=== PATIENT | female | born 1975 | race Caucasian/White ===

== ENCOUNTER 2016-04-25 16:36 | Emergency (ER) | payer MEDICAID ==
[~2016-04-25] VITALS: Ht 167.6 cm; Wt 68.0 kg
[2016-04-25 17:51] LABS: Urine Bilirubin Negative (Negative); Urine Color Yellow (Yellow); Urine Glucose Normal (Normal); Urine Ketone Negative (Negative); Urine Mucus FEW (None Seen); Urine Nitrite Negative (Negative); Urine RBC 4 /hpf (0 - 4); Urine Squamous Epithelial Cell FEW /hpf (<5); Urine Urobilinogen Normal (Negative)
[2016-04-25 17:52] LABS: Urine Blood 1+ /uL (Negative)
[2016-04-25 18:04] LABS: Albumin 4.2 g/dL (3.4-5.0); BUN/Creatinine Ratio 16.3; Bilirubin, Total 0.4 mg/dL (0.2-1.0); Calcium 8.9 mg/dL (8.5-10.1); Magnesium 2.4 mg/dL (1.6-2.6); Total Protein 7.7 g/dL (6.4-8.2)
[2016-04-25 18:13] LABS: Basophils # (auto) 0.1 uL; Basophils % (auto) 0.4 % (0.0-2.0); Eosinophils # (auto) 0.3 uL; Eosinophils % (auto) 1.9 % (0.0-7.0); Hematocrit 40.5 % (36.0-46.0); Hemoglobin 13.4 g/dL (12.2-16.2); Lymphocytes # (auto) 2.5 uL; Lymphocytes % (auto) 17.6 % (10.0-50.0); Mean Corpuscular Hemoglobin 30.7 pg (28.0-32.0); Mean Corpuscular Hgb Conc. 33.1 g/dL (32.0-36.0); Mean Corpuscular Volume 92.8 fL (80.0-100.0); Mean Platelet Volume 8.5 fL (7.4-10.4); Monocytes # (auto) 0.7 uL; Monocytes % (auto) 4.6 % (0.0-12.0); Neutrophils # (auto) 10.9 uL; Neutrophils % (auto) 75.5 % (37.0-80.0); Platelet Count (auto) 412 10^3/uL (140-450); Red Cell Distribution Width 14.4 % (11.6-16.0); White Blood Cell 14.5 10^3/uL (4.4-10.8)
[2016-04-25 18:18] LABS: INR 1.01 (0.9-1.15); Partial Thromboplastin Time 27.3 sec (22.64-33.71); Prothrombin Time 10.4 sec (9.37-12.3)
[2016-04-25] MEDS ORDERED: SULFAMETHOX W/TRIMETH(800/160MG) DS TAB PO ONE (21:30)
[2016-04-25] MEDS ORDERED: IBUPROFEN 600 MG TAB PO ONE (21:45)
[2016-04-26] MEDS: SULFAMETHOX W/TRIMETH(800/160MG) DS TAB PO SCH (10:00)
[2016-04-27] MEDS: SULFAMETHOX W/TRIMETH(800/160MG) DS TAB PO SCH (11:30)
[2016-04-28] MEDS: SULFAMETHOX W/TRIMETH(800/160MG) DS TAB PO SCH ×3 (04:19→19:56)
[2016-04-28 07:20] VITALS: BP 132/74
== END 2016-04-29 10:39 | disposition home or self-care (01) ==
LOC: EDUNIT# 16:36 → ER 16:36
DX: F32.9 Major depressive disorder, single episode, unspecified (principal); R45.851 Suicidal ideations; N39.0 Urinary tract infection, site not specified; F20.9 Schizophrenia, unspecified; F17.210 Nicotine dependence, cigarettes, uncomplicated
CPT/HCPCS: 36415; 71010; 80053; 80320; 81001; 81025; 83735; 85025; 85610; 85730; 93005; 94761; 99285; G0434

== ENCOUNTER 2018-11-14 19:18 | Emergency (ER) | payer MEDICAID, OTHER ==
[~2018-11-14] VITALS: Ht 152.4 cm; Wt 72.6 kg
[2018-11-14 21:06] LABS: Basophils # (auto) 0.1 uL; Basophils % (auto) 0.6 % (0.0-2.0); Eosinophils # (auto) 0.3 uL; Eosinophils % (auto) 2.7 % (0.0-7.0); Hematocrit 41.1 % (36.0-46.0); Hemoglobin 13.9 g/dL (12.2-16.2); Lymphocytes # (auto) 2.5 uL; Lymphocytes % (auto) 23.5 % (10.0-50.0); Mean Corpuscular Hemoglobin 31.7 pg (28.0-32.0); Mean Corpuscular Hgb Conc. 33.8 g/dL (32.0-36.0); Mean Corpuscular Volume 93.7 fL (80.0-100.0); Monocytes # (auto) 0.7 uL; Monocytes % (auto) 6.5 % (0.0-12.0); Neutrophils # (auto) 7.1 uL; Neutrophils % (auto) 66.7 % (37.0-80.0); Platelet Count (auto) 357 10^3/uL (140-450); Red Blood Cells 4.39 10^6/uL (4.0-5.20); Red Cell Distribution Width 13.9 % (11.8-14.3); White Blood Cell 10.6 10^3/uL (4.4-10.8)
[2018-11-14 21:17] LABS: Potassium 4.2 mmol/L (3.5-5.1)
[2018-11-14 21:20] LABS: Albumin 4.3 g/dL (3.4-5.0); BUN/Creatinine Ratio 12.2
[2018-11-14 21:23] LABS: Bilirubin, Total 0.4 mg/dL (0.2-1.0)
[2018-11-14 22:45] LABS: Urine Bacteria FEW /hpf (None Seen); Urine Blood TRACE /uL (Negative); Urine Mucus FEW (None Seen); Urine Specific Gravity 1.027 (1.001-1.035); Urine WBC 8 /hpf (0 - 5)
[2018-11-14 22:51] LABS: Amphetamine Screen, Urine NEGATIVE (NEGATIVE); Barbiturate Scree,Urine NEGATIVE (NEGATIVE); Benzodiazephine Screen, Urine NEGATIVE (NEGATIVE); Cannabinoid Screen, Urine NEGATIVE (NEGATIVE); Cocaine Screen, Urine NEGATIVE (NEGATIVE); Opiate Scree,Urine NEGATIVE (NEGATIVE); Phencyclidine Screen, Urine NEGATIVE (NEGATIVE)
[2018-11-14 22:59] LABS: Alcohol, Urine < 3.0 mg/dL (0-5)
[2018-11-15] MEDS ORDERED: SODIUM CHLORIDE 0.9% 1,000 ML IV ONE (01:30)
[2018-11-15] MEDS ORDERED: ACETAMINOPHEN 500 MG TAB PO ONE (02:15)
[2018-11-15 04:00] VITALS: BP 103/64
== END 2018-11-15 04:14 | disposition home or self-care (01) ==
LOC: ER 19:24
DX: N83.201 Unspecified ovarian cyst, right side (principal)
CPT/HCPCS: 36415; 74176; 80053; 80307; 81001; 81025; 85025; 96360; 96361; 99284; J7030

== ENCOUNTER 2019-02-05 01:14 | Emergency (ER) | payer OTHER ==
[~2019-02-05] VITALS: Ht 152.4 cm; Wt 68.0 kg
[2019-02-05 03:57] VITALS: BP 125/80
[2019-02-05] MEDS ORDERED: IBUPROFEN 800 MG TAB PO ONE (04:30)
== END 2019-02-05 04:37 | disposition home or self-care (01) ==
LOC: EDBD 01:14 → ER 01:18
DX: K04.7 Periapical abscess without sinus (principal); F17.210 Nicotine dependence, cigarettes, uncomplicated; F15.10 Other stimulant abuse, uncomplicated

== ENCOUNTER 2020-08-04 02:32 | Emergency (ER) | payer OTHER ==
[~2020-08-04] VITALS: Ht 157.5 cm; Wt 59.0 kg
[2020-08-04 05:44] VITALS: BP 142/93
[2020-08-04] MEDS ORDERED: SODIUM CHLORIDE 0.9% 1,000 ML IVB ONE (07:15)
== END 2020-08-04 07:53 | disposition left against medical advice (07) ==
LOC: ER 02:32
DX: R10.84 Generalized abdominal pain (principal); R53.1 Weakness; F17.210 Nicotine dependence, cigarettes, uncomplicated

== ENCOUNTER 2022-01-16 07:07 | Emergency (ER) | payer OTHER ==
[~2022-01-16] VITALS: Ht 160 cm; Wt 72.7 kg
[2022-01-16 07:20] VITALS: BP 139/79
== END 2022-01-16 16:49 | disposition left against medical advice (07) ==
LOC: ER 07:07
DX: F25.9 Schizoaffective disorder, unspecified (principal); F17.210 Nicotine dependence, cigarettes, uncomplicated; Z53.29 Procedure and treatment not carried out because of patient's decision for other reasons
CPT/HCPCS: 93005